=== PATIENT | female | born 1970 | race American Indian/Alaskan Native ===

== ENCOUNTER 2021-06-08 13:15 | Emergency (ER) | payer SELFPAY ==
--- NOTE | 2021-06-08 14:29 | XRay Report ---
XR spine cervical 2-3V INDICATION / CLINICAL INFORMATION: fall w/radicular sx. COMPARISON: None available. FINDINGS: BONES/JOINT(S): No acute fracture or subluxation. Mild degenerative disc disease at C4-5. SOFT TISSUES: No significant abnormality. ADDITIONAL FINDINGS: None. Signer Name: Robbin oL MD Signed: 06/08/2021 2:25 PM Workstation Name: [id number]
--- NOTE | 2021-06-08 14:29 | XRay Report ---
XR spine lumbosacral 2-3V INDICATION / CLINICAL INFORMATION: fall w/radicular sx. COMPARISON: None available. FINDINGS: BONES/JOINT(S): No acute fracture or subluxation. Mild right convex scoliosis with the apex at the L1 -2 level. SOFT TISSUES: No significant abnormality. ADDITIONAL FINDINGS: None. Signer Name: Robbin Lo MD Signed: 06/08/2021 2:25 PM Workstation Name: [id number]
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
[2021-06-08 15:33] VITALS: BP 144/91
== END 2021-06-08 15:29 | disposition home or self-care (01) ==
LOC: ED 13:15
DX: S16.1XXA Strain of muscle, fascia and tendon at neck level, initial encounter (principal); S39.012A Strain of muscle, fascia and tendon of lower back, initial encounter; M54.12 Radiculopathy, cervical region; M54.16 Radiculopathy, lumbar region; W18.30XA Fall on same level, unspecified, initial encounter; Y93.89 Activity, other specified; Y92.89 Other specified places as the place of occurrence of the external cause; Y99.8 Other external cause status
CPT/HCPCS: 72040; 72100; 99283